=== PATIENT | female | born 1960 | race African-American/Black ===

== ENCOUNTER 2018-03-11 11:56 | Outpatient (RCR) | payer OTHER | END 2018-03-17 | LOC: OT 11:56 | PROVIDERS: ATTEND Surgery Surgery of the Hand | DX: M25.642 Stiffness of left hand, not elsewhere classified (principal) ==

== ENCOUNTER 2018-03-22 16:10 | Outpatient (RCR) | payer OTHER | END 2018-04-16 | LOC: OT 16:10 | PROVIDERS: ATTEND Surgery Surgery of the Hand | DX: M25.642 Stiffness of left hand, not elsewhere classified (principal) ==